=== PATIENT | female | born 1970 | race Caucasian/White ===

== ENCOUNTER 2019-01-24 00:58 | Emergency (ER) | payer OTHER ==
--- NOTE | 2019-01-24 01:12 | EDPHY ---
H & P Time Seen by Provider: 01/24/19 01:07 HPI/ROS: CC: right flank pain for 5 hours HPI: This 48-year-old female with no significant past medical history presents to emergency department tonight with her complaining of right flank pain that started at 8:00 p.m.. She describes it as initially a dull thud and rated the pain at 4/10. It is now sharp and she rates the pain at 8/10. It has been constant. She has had no prior episodes of this sort. No h/o kidney stones although she has had a kidney infection in the past. She was fine prior to 8:00 p.m. this evening. She has not had fever, chills, nausea, vomiting, dysuria, or hematuria. No constipation or diarrhea. No trauma. She took 2 Advil at 9:30 p.m. and 1 hydrocodone one half hour prior to arrival without relief. REVIEW OF SYSTEMS: Constitutional: No fever, no chills. Eyes: No discharge. ENT: No sore throat. Respiratory: No cough, no shortness of breath. Cardiac: No chest pain, no palpitations. Gastrointestinal: No abdominal pain, no vomiting. Genitourinary: No hematuria. Musculoskeletal: See HPI. Skin: No rashes. Neurological: No headache. Source: Patient Exam Limitations: No limitations - Medical/Surgical History PMH: PMH: pyelonephritis PSH: 3 knee surgeries, breast reduction, 2 FH: adopted NKDA Meds: Essure control PCP: Vinnie Durbin Hx Asthma: No Hx Chronic Respiratory Disease: No Hx Diabetes: No Hx Cardiac Disease: No Hx Renal Disease: No Hx Cirrhosis: No Hx Alcoholism: No Hx HIV/AIDS: No Hx Splenectomy or Spleen Trauma: No - Social History Additional Social History: Smokes 1/2 ppd tobacco a 20 years; rare ETOH; occasional marijuana - Physical Exam Exam: General Appearance: Alert, moderate distress. Eyes: Pupils equal and round no pallor or injection. ENT, Mouth: Mucous membranes are moist. No erythema or exudates. Respiratory: There are no retractions, lungs are clear to auscultation. Cardiovascular: Regular rate and rhythm. No murmurs, gallops, or rubs. Gastrointestinal: Abdomen is soft and nontender, no masses, bowel sounds normal. No rebound, guarding or rigidity. Back: No significant CVA tenderness to percussion. Neurological: Awake and alert, sensory and motor exams grossly normal. Skin: Warm and dry, no rashes to suggest shingles. Musculoskeletal: Neck is supple, nontender. Extremities are symmetrical, full range of motion. No clubbing, cyanosis, or edema. Psychiatric: Patient is oriented X 3, there is no agitation. DIFFERENTIAL DIAGNOSIS: After history and physical exam differential diagnosis was considered for but not limited to and no particular order: Ureterolithiasis , pyelonephritis, cholelithiasis, appendicitis, shingles, musculoskeletal. Constitutional: Initial Vital Signs Temperature (C) 98 F 01/24/19 01:11 Heart Rate 67 01/24/19 01:11 Respiratory Rate 20 01/24/19 01:11 Blood Pressure 157/71 H 01/24/19 01:11 O2 Sat (%) 97 01/24/19 01:11 O2 Delivery Mode Room Air Allergies/Adverse Reactions: No Known Allergies Allergy (Unverified 12/22/13 20:31) Home Medications: Medication Instructions Recorded Miscellaneous Medical Supply [NO 12/22/13 HOME MEDS] Medical Decision Making - Diagnostics Imaging Results: Preliminary CT of the abdomen and pelvis without contrast report: A 2.5 mm calyceal calculus in the inferior pole of the right kidney, and a 2.5 mm caliceal calculus in the superior pole of the left kidney. Imaging: Discussed imaging studies w/ carpet renovator Radiologist ED Course/Re-evaluation: The patient was seen and examined. Vital signs reviewed and were notable for slightly elevated blood pressure. Prior records were reviewed. A CBC was normal. Comprehensive metabolic panel remarkable for a slightly low potassium at 3.1. Liver function tests were normal. Urine dip positive for 1+ blood. Microscopic pending. test negative. CT of the abdomen and pelvis without contrast preliminary report read as no basilar airspace consolidation or pleural effusion, liver unremarkable, gallbladder unremarkable, pancreas unremarkable, spleen unremarkable, adrenal glands unremarkable. A 2.5 mm calyceal calculus in the inferior pole the right kidney and a 2.5 mm calyceal calculus in the superior pole of the left kidney was noted. There is no bowel obstruction or bowel wall thickening. No evidence of colitis or acute diverticulitis. No CT evidence for appendicitis. No free fluid and no free air in the peritoneum. There were bilateral tubal occlusive devices. Vasculature showed no aortic aneurysm. I discussed this with a 2nd radiologist , Dr. Crenshaw, who said there is no evidence of any stranding around the right kidney and no hydronephrosis. Although the patient presented clinically as a kidney stone there is no evidence that she has passed a kidney stone and there is no evidence of ureterolithiasis. There are no other abnormalities noted on exam, CT, or laboratory data which would suggest another diagnosis or a more serious diagnosis. The patient was advised to follow up with her primary care provider this week for further evaluation of her flank pain as well as her slightly elevated blood pressure this evening. She was also given the name of the urologist on-call and may choose to follow up with him as well. She was advised to return to the emergency room if she had increased pain, fever , nausea, vomiting, rash, or any other concerns. - Data Points Laboratory Results: 01/24/19 01:23 POC Sodium 139 mEq/L mEq/L (135-145) POC Potassium 3.1 mEq/L L mEq/L (3.3-5.0) POC Chloride 103.0 mEq/L mEq/L (97-110) POC Total CO2 24 mEq/L mEq/L (22-31) POC BUN 9 mg/dL mg/dL (7-23) POC Creatinine 0.7 mg/dL mg/dL (0.6-1.0) POC Glucose 116 mg/dL H mg/dL (70-100) POC Calcium 9.6 mg/dL mg/dL (8.5-10.4) POC Total Bilirubin 0.5 mg/dL mg/dL (0.1-1.4) POC AST 22 IU/L IU/L (14-46) POC ALT 15 IU/L IU/L (9-52) POC Alk Phosphatase 78 IU/L IU/L (38-126) POC Total Protein 6.7 g/dL g/dL (6.3-8.2) POC Albumin 3.9 g/dL g/dL (3.5-5.0) Medications Given: Discontinued Medications Fentanyl (Sublimaze) 25 mcg IVP EDNOW ONE Stop: 01/24/19 01:43 Last Admin: 01/24/19 01:50 Dose: 25 mcg Sodium Chloride (Ns) 1,000 mls @ 0 mls/hr IV ONCE ONE; Wide Open PRN Reason: Protocol Stop: 01/24/19 01:24 Last Admin: 01/24/19 01:28 Dose: 1,000 mls Ketorolac Tromethamine (Toradol) 30 mg IVP EDNOW ONE Stop: 01/24/19 01:25 Last Admin: 01/24/19 01:28 Dose: 30 mg Point of Care Test Results: CBC CBC Collection Date 01/24/19 CBC Collection Time 01:15 WBC 10.89 RBC 4.44 HGB 13.6 HCT 40.9 PLT 272 Neut # 6.97 Neut 64.0 LYMPH # 2.70 LYMPH 24.8 MCV 92.1 Chemistry 01/24/19 01:23 POC Sodium 139 mEq/L mEq/L (135-145) POC Potassium 3.1 mEq/L L mEq/L (3.3-5.0) POC Chloride 103.0 mEq/L mEq/L (97-110) POC Total CO2 24 mEq/L mEq/L (22-31) POC BUN 9 mg/dL mg/dL (7-23) POC Creatinine 0.7 mg/dL mg/dL (0.6-1.0) POC Glucose 116 mg/dL H mg/dL (70-100) POC Calcium 9.6 mg/dL mg/dL (8.5-10.4) POC Total Bilirubin 0.5 mg/dL mg/dL (0.1-1.4) POC AST 22 IU/L IU/L (14-46) POC ALT 15 IU/L IU/L (9-52) POC Alk Phosphatase 78 IU/L IU/L (38-126) POC Total Protein 6.7 g/dL g/dL (6.3-8.2) POC Albumin 3.9 g/dL g/dL (3.5-5.0) Urine Collection Date 01/24/19 Collection Time 01:05 HCG Results Negative Urine Dip Collection Date 01/24/19 Collection Time 01:05 Specific [place] (1.002-1.030) 1.020 PH (5.0-7.5) 8.5 Leukocytes (Negative) Negative Nitrites (Negative) Negative Protein (Negative) Negative Glucose (Negative) Negative Ketones (Negative) Negative Urobilnogen (0.2-1.0 EU) 0.2 Bilirubin (Negative) Negative Blood (Negative) 1+ Departure - Departure Disposition: Home, Routine, Self-Care Clinical Impression: Acute right flank pain Condition: Good Instructions: Hydrocodone/Acetaminophen (By mouth), Hypokalemia (ED), Flank Pain (ED) Additional Instructions: Drink plenty of fluids. Ibuprofen for pain as directed. [place] (hydrocodone/ acetaminophen) for pain unrelieved by ibuprofen. Follow up with your primary care provider (Dr. Keith Durbin) this week. You may also choose to follow up with the urologist listed. Return to the ER if increased pain, fever, vomiting, difficulty or pain with urination, rash or any other concerns as discussed. Your potassium was a little low tonight (3.1). Increase potassium containing foods in your diet as directed. Also, your blood pressure was elevated tonight (157/71). Discuss this with your primary care provider at your follow up appointment. Keith Durbin MD Specialties: Internal Medicine [employer] Primary Location: [address] [place] [address] Referrals: Patient,NotPresent [Primary Care Provider] - As per Instructions Kalyan Hays MD [Medical Doctor] - As per Instructions
[2019-01-24] MEDS ORDERED: NS 1,000 ML IV ONE (01:23)
[2019-01-24] MEDS ORDERED: KETOROLAC 30 MG/1 ML SDV IVP ONE (01:24)
[2019-01-24] MEDS ORDERED: fentaNYL 100 MCG/2 ML INJ IVP ONE (01:42)
[2019-01-24] MEDS ORDERED: ONDANSETRON 4 MG/2 ML VIAL ONE (01:47)
[2019-01-24] MEDS ORDERED: HYDROCOD/APAP 5/325 PREPACK#6 BTL TAKEHOME ONE (02:37)
[2019-01-24 03:01] VITALS: BP 137/62
== END 2019-01-24 02:59 | disposition home or self-care (01) ==
LOC: CED 00:58
DX: N20.0 Calculus of kidney (principal); E86.9 Volume depletion, unspecified
CPT/HCPCS: 74176-PO; 80053-ER; 96361-ER; 96374-ER; 96375-ER; J1885; J2405; J3010

== ENCOUNTER → 2019-01-25 | Outpatient (CLI) | payer OTHER | LOC: FIMAGING 12:59 | PROVIDERS: ATTEND Specialist | DX: R31.9 Hematuria, unspecified (principal); R10.9 Unspecified abdominal pain ==